=== PATIENT | female | born 1970 | race Caucasian/White ===

== ENCOUNTER → 2017-10-26 | Outpatient (CLI) | payer OTHER | END | disposition home or self-care (01) | LOC: C.LAB 03:31 | DX: Z02.83 Encounter for blood-alcohol and blood-drug test (principal) ==

== ENCOUNTER 2017-12-10 13:05 | Emergency (ER) | payer BC, OTHER ==
[~2017-12-10] VITALS: Ht 170.2 cm; Wt 84.3 kg
[2017-12-10 13:09] VITALS: TEMP 36.8; Ht 170.2 cm; Wt 84.3 kg
[2017-12-10] MEDS ORDERED: MoRPHine SULFATE 4 MG/ML 1 ML CARP\\VIAL IV STA (13:30)
[2017-12-10] MEDS ORDERED: ONDANSETRON INJ 2 MG/ML 2 ML VIAL IV STA ×2 (13:30→16:40)
[2017-12-10] MEDS ORDERED: SODIUM CHLORIDE 0.9% 1000ML 1,000 ML IV STA (13:33)
[2017-12-10 13:55] LABS: BASO % 0.6 %; BASO ABS # 0.04 K/uL (0-0.2); EOS % 2.8 %; HEMATOCRIT 39.7 % (37-47); IG# 0.01 K/uL (0.00-0.02); LYMPH % 32.9 %; LYMPH ABS # 2.39 K/uL (1.2-3.4); MEAN CELL VOLUME 93.2 fL (80-100); MEAN CORPUSCULAR HEMOGLOBIN 32.9 pg (25-34); MEAN CORPUSCULAR HGB CONC 35.3 g/dl (32-36); MEAN PLATELET VOLUME 10.3 fL (7.4-10.4); MONO % 7.6 %; MONO ABS # 0.55 K/uL (0.11-0.59); NEUT ABS # 4.07 K/uL (1.4-6.5); PLATELET COUNT 275 K/uL (130-400); RED CELL DISTRIBUTION WIDTH CV 13.9 % (11.5-14.5); RED CELL DISTRIBUTION WIDTH SD 47.2 fL (36.4-46.3); WHITE BLOOD COUNT 7.26 K/uL (4.8-10.8)
[2017-12-10 14:12] LABS: ALBUMIN 3.8 gm/dl (3.4-5.0); ALT/SGPT 22 U/L (12-78); AST/SGOT 15 U/L (15-37); BLOOD UREA NITROGEN 9 mg/dl (7-18); CALCIUM 8.3 mg/dl (8.5-10.1); CARBON DIOXIDE 22 mmol/L (21-32); CREATININE 0.76 mg/dl (0.60-1.20); GLUCOSE 87 mg/dl (70-99); POTASSIUM 3.4 mmol/L (3.5-5.1); SODIUM 140 mmol/L (136-145)
[2017-12-10 14:17] LABS: PTT PATIENT 24.5 SECONDS (21.0-31.0)
[2017-12-10 14:27] LABS: ALKALINE PHOSPHATASE 65 U/L (45-117); TOTAL PROTEIN 7.3 gm/dl (6.4-8.2)
[2017-12-10] MEDS ORDERED: OPTIRAY 320 IV PRN (14:45)
--- NOTE | 2017-12-10 14:48 | DIAGNOSTIC IMAGING REPORT ---
SINGLE VIEW CHEST CLINICAL HISTORY: Cough. FINDINGS: An AP, portable, upright chest radiograph is compared to study dated 12/21/2011. The examination is degraded by portable technique and patient rotation. The cardiomediastinal silhouette is unremarkable. The lungs and pleural spaces are clear. No pneumothorax is seen. There is chronic posttraumatic deformity of the right clavicle. IMPRESSION: No acute cardiopulmonary abnormality. Electronically signed by: Luke Fan M.D. 12/10/2017 2:47 PM Dictated Date/Time: 12/10/2017 2:46 PM
--- NOTE | 2017-12-10 15:37 | DIAGNOSTIC IMAGING REPORT ---
CHEST CTA for PULMONARY ARTERIES CT DOSE: 495.77 mGy.cm HISTORY: Elevated d-dimer. Cough. TECHNIQUE: Multiaxial CT images of the chest were performed following the intravenous administration of contrast to evaluate the pulmonary arteries. Maximal intensity projection images were also obtained. A dose lowering technique was utilized adhering to the principles of ALARA. COMPARISON STUDY: None. FINDINGS: There is a normal caliber thoracic aorta with no evidence for dissection. There is no evidence for pulmonary embolus. No pleural effusions. No pneumothorax. The liver and spleen are unremarkable. No mediastinal or hilar lymphadenopathy. The central airways are patent. Suggestion of a 2.5 cm right thyroid nodule. However, this is partially obscured by streak artifact. Bilateral breast augmentation. Mild dependent changes seen within the lung bases. No focal lung consolidations to suggest pneumonia. IMPRESSION: 1. No evidence for pulmonary embolus. 2. Possible 2.5 cm right thyroid nodule. Follow-up nonemergent thyroid ultrasound is recommended for further evaluation. Electronically signed by: Heath Waldron M.D. 12/10/2017 3:35 PM Dictated Date/Time: 12/10/2017 3:22 PM
[2017-12-10] MEDS ORDERED: KETOROLAC TROMETHAMINE 30 MG/ML VIAL IV STA (15:51)
[2017-12-10] MEDS ORDERED: CARISOPRODOL 350 MG TAB PO ONE (16:15)
--- NOTE | 2017-12-10 16:38 | DIAGNOSTIC IMAGING REPORT ---
THORACIC SPINE WITHOUT HISTORY: 47 years-old Female recons of CTA acute back pain COMPARISON: CTA chest of same day, lumbar spine CT 09/20/2013 TECHNIQUE: Multiple axial CT images of the thoracic spine were obtained without the use of IV contrast. Coronal and sagittal reformatted images were obtained from the axial data set and were submitted for review. A dose lowering technique was used consistent with the principals of ALARA. FINDINGS: Bones appear mildly demineralized. Mild multilevel spondylitic spurring without significant intervertebral disc space narrowing, acute fracture or subluxation. Minimal facet arthrosis is also seen throughout. 9 mm focal area of sclerosis involves the T5 vertebral body on the left is indeterminate and may reflect a bone island. No acute displaced rib fracture. No significant central canal or foraminal narrowing identified. No acute process of the imaged abdomen or chest. No pneumothorax. Mild subsegmental dependent bibasilar atelectasis. There may be mild bilateral bronchial wall thickening. Decreased attenuation of the inferior right thyroid lobe may correlate with the previously described thyroid nodule. IMPRESSION: Minimal degenerative changes as above without acute fracture or subluxation. The above report was generated using voice recognition software. It may contain grammatical, syntax or spelling errors. Electronically signed by: Yanick Amaral M.D. 12/10/2017 4:37 PM Dictated Date/Time: 12/10/2017 4:32 PM
[2017-12-10] MEDS ORDERED: CARI350T27 PO (16:43)
[2017-12-10] MEDS ORDERED: ONDA4TAB10 SL (16:45)
[2017-12-10 16:46] VITALS: BP 131/82; PULSE 78; O2SAT 98
--- NOTE | 2017-12-10 16:57 | EMERGENCY ROOM VISIT NOTE ---
History Report prepared by Karo: Mark Ramirez Under the Supervision of: Dr. Iris De Leon M.D. First contact with patient: 13:16 Chief Complaint: BACK PAIN Stated Complaint: BACK PAIN,SOB,PAIN History of Present Illness The patient is a 47 year old female who presents to the Emergency Room with complaints of worsening mid-back pain beginning a few days ago. She also complains of shortness of breath and nausea. The patient's pain is improved with sitting straight up. She is a smoker, and denies increased cough. The patient has a history of anxiety (not on any medications) and states that she thought her symptoms could be related to anxiety, but believes it probably is not. She denies chest pain or abdominal pain. She has no diagnosed back problems. The patient notes that her feet and ankles hurt all the time due to her always being on her feet for work. She has not noticed any worsening of pain with eating. Source of History: patient Onset: A few days ago Position: back (mid) Timing: constant Modifying Factors (Relieving): other (sitting up straight) Associated Symptoms: + SOB, + nausea, No chest pain, No abdominal pain Review of Systems See HPI for pertinent positives & negatives. A total of 10 systems reviewed and were otherwise negative. Past Medical & Surgical Medical Problems: (1) ALCOHOL ABUSE-UNSPEC (2) ANXIETY STATE NOS (3) Appendectomy (4) Bilateral breast implants (5) BIPOLAR DISORDER, UNSPECIFIED (6) CALCULUS OF KIDNEY (7) section (8) MITRAL VALVE DISORDER (9) TOBACCO USE DISORDER Surgical Problems: (1) H/O abdominoplasty Family History FH: colon cancer MOTHER Kidney disease Kidney stones Social History Smoking Status: Current Every Day Smoker Alcohol Use: occasionally Marital Status: Housing Status: lives with family Occupation Status: employed Current/Historical Medications Scheduled Ondasetron Odt (Zofran Odt), 4 MG SL Q6H Scheduled PRN Carisoprodol (Soma), 350 MG PO Q8 PRN for spasm Allergies Coded Allergies: Penicillins (Verified Allergy, Mild, 12/10/17) Prochlorperazine (Verified Allergy, Mild, 12/10/17) Codeine (Verified Allergy, Unknown, ITCHY, RASH, ANXIETY, 12/10/17) Physical Exam Vital Signs Date Time Temp Pulse Resp B/P (MAP) Pulse Ox O2 Delivery O2 Flow Rate FiO2 12/10/17 16:46 78 20 131/82 98 Room Air 12/10/17 15:09 83 20 126/89 97 Room Air 12/10/17 13:51 83 12/10/17 13:09 36.8 88 20 112/67 94 Room Air Physical Exam Vital signs reviewed. General: Well-appearing female, in no significant distress. Appears anxious. HEENT: No scleral icterus, PERRLA, neck supple. Atraumatic. Cardiovascular: Regular rate and rhythm, no extra sounds. Pulmonary: Clear to auscultation bilaterally, normal work of breathing. Abdomen: Soft, nontender, nondistended, positive bowel sounds. Musculoskeletal: Atraumatic, no peripheral edema. Tender to palpation over the mid-thoracic paraspinous muscles. Elicited with palpation of the upper abdomen Neurologic: Patient awake alert and oriented x 3 Skin: Warm, dry, no rash Medical Decision & Procedures ER Provider Diagnostic Interpretation: Radiology results as stated below per my review and radiologist interpretation: SINGLE VIEW CHEST FINDINGS: An AP, portable, upright chest radiograph is compared to study dated 12/21/2011. The examination is degraded by portable technique and patient rotation. The cardiomediastinal silhouette is unremarkable. The lungs and pleural spaces are clear. No pneumothorax is seen. There is chronic posttraumatic deformity of the right clavicle. IMPRESSION: No acute cardiopulmonary abnormality. Electronically signed by: Luke Fan M.D. 12/10/2017 2:47 PM CHEST CTA for PULMONARY ARTERIES FINDINGS: There is a normal caliber thoracic aorta with no evidence for dissection. There is no evidence for pulmonary embolus. No pleural effusions. No pneumothorax. The liver and spleen are unremarkable. No mediastinal or hilar lymphadenopathy. The central airways are patent. Suggestion of a 2.5 cm right thyroid nodule. However, this is partially obscured by streak artifact. Bilateral breast augmentation. Mild dependent changes seen within the lung bases. No focal lung consolidations to suggest pneumonia. IMPRESSION: 1. No evidence for pulmonary embolus. 2. Possible 2.5 cm right thyroid nodule. Follow-up nonemergent thyroid ultrasound is recommended for further evaluation. Electronically signed by: Heath Waldron M.D. 12/10/2017 3:35 PM THORACIC SPINE WITHOUT FINDINGS: Bones appear mildly demineralized. Mild multilevel spondylitic spurring without significant intervertebral disc space narrowing, acute fracture or subluxation. Minimal facet arthrosis is also seen throughout. 9 mm focal area of sclerosis involves the T5 vertebral body on the left is indeterminate and may reflect a bone island. No acute displaced rib fracture. No significant central canal or foraminal narrowing identified. No acute process of the imaged abdomen or chest. No pneumothorax. Mild subsegmental dependent bibasilar atelectasis. There may be mild bilateral bronchial wall thickening. Decreased attenuation of the inferior right thyroid lobe may correlate with the previously described thyroid nodule. IMPRESSION: Minimal degenerative changes as above without acute fracture or subluxation. The above report was generated using voice recognition software. It may contain grammatical, syntax or spelling errors. Electronically signed by: Yanick Amaral M.D. 12/10/2017 4:37 PM Laboratory Results 12/10/17 13:43 Red Blood Count 4.26, Mean Corpuscular Volume 93.2, Mean Corpuscular Hemoglobin 32.9, Mean Corpuscular Hemoglobin Concent 35.3, Mean Platelet Volume 10.3, Neutrophils (%) (Auto) 56.0, Lymphocytes (%) (Auto) 32.9, Monocytes (%) (Auto) 7.6, Eosinophils (%) (Auto) 2.8, Basophils (%) (Auto) 0.6, Neutrophils # (Auto) 4.07, Lymphocytes # (Auto) 2.39, Monocytes # (Auto) 0.55, Eosinophils # (Auto) 0.20, Basophils # (Auto) 0.04 12/10/17 13:43 Test 12/10/17 13:43 12/10/17 13:52 White Blood Count 7.26 K/uL (4.8-10.8) Red Blood Count 4.26 M/uL (4.2-5.4) Hemoglobin 14.0 g/dL (12.0-16.0) Hematocrit 39.7 % (37-47) Mean Corpuscular Volume 93.2 fL (80-100) Mean Corpuscular Hemoglobin 32.9 pg (25-34) Mean Corpuscular Hemoglobin Concent 35.3 g/dl (32-36) Platelet Count 275 K/uL (130-400) Mean Platelet Volume 10.3 fL (7.4-10.4) Neutrophils (%) (Auto) 56.0 % Lymphocytes (%) (Auto) 32.9 % Monocytes (%) (Auto) 7.6 % Eosinophils (%) (Auto) 2.8 % Basophils (%) (Auto) 0.6 % Neutrophils # (Auto) 4.07 K/uL (1.4-6.5) Lymphocytes # (Auto) 2.39 K/uL (1.2-3.4) Monocytes # (Auto) 0.55 K/uL (0.11-0.59) Eosinophils # (Auto) 0.20 K/uL (0-0.5) Basophils # (Auto) 0.04 K/uL (0-0.2) RDW Standard Deviation 47.2 fL (36.4-46.3) RDW Coefficient of Variation 13.9 % (11.5-14.5) Immature Granulocyte % (Auto) 0.1 % Immature Granulocyte # (Auto) 0.01 K/uL (0.00-0.02) Prothrombin Time 10.5 SECONDS (9.0-12.0) Prothromb Time International Ratio 1.0 (0.9-1.1) Activated Partial Thromboplast Time 24.5 SECONDS (21.0-31.0) Partial Thromboplastin Ratio 0.9 Anion Gap 7.0 mmol/L (3-11) Est Creatinine Clear Calc Drug Dose 102.1 ml/min Estimated GFR () 108.3 Estimated GFR (Non- 93.4 BUN/Creatinine Ratio 11.3 (10-20) Calcium Level 8.3 mg/dl (8.5-10.1) Total Bilirubin 0.4 mg/dl (0.2-1) Direct Bilirubin 0.1 mg/dl (0-0.2) Aspartate Amino Transf (AST/SGOT) 15 U/L (15-37) Alanine Aminotransferase (ALT/SGPT) 22 U/L (12-78) Alkaline Phosphatase 65 U/L (45-117) Troponin I < 0.015 ng/ml (0-0.045) Total Protein 7.3 gm/dl (6.4-8.2) Albumin 3.8 gm/dl (3.4-5.0) Thyroid Stimulating Hormone (TSH) 0.579 uIu/ml (0.300-4.500) Bedside D-Dimer > 450 ng/mlFEU (0-450) Urine Color DK YELLOW Urine Appearance CLEAR (CLEAR) Urine pH 5.0 (4.5-7.5) Urine Specific [place] 1.027 (1.000-1.030) Urine Protein NEG (NEG) Urine Glucose (UA) NEG (NEG) Urine Ketones TRACE (NEG) Urine Occult Blood 2+ (NEG) Urine Nitrite NEG (NEG) Urine Bilirubin NEG (NEG) Urine Urobilinogen NEG (NEG) Urine Leukocyte Esterase NEG (NEG) Urine WBC (Auto) 1-5 /hpf (0-5) Urine RBC (Auto) 0-4 /hpf (0-4) Urine Hyaline Casts (Auto) 1-5 /lpf (0-5) Urine Epithelial Cells (Auto) >30 /lpf (0-5) Urine Bacteria (Auto) NEG (NEG) Urine Test NEG (NEG) Laboratory results per my review. Medications Administered Medications (Trade) Dose Ordered Sig/Inocencio Route Start Time Stop Time Status Last Admin Dose Admin Morphine Sulfate (MoRPHine SULFATE INJ) 4 mg NOW STAT IV 12/10/17 13:30 12/10/17 13:33 DC 12/10/17 13:54 4 MG Ondansetron HCl (Zofran Inj) 4 mg NOW STAT IV 12/10/17 13:30 12/10/17 13:33 DC 12/10/17 13:54 4 MG Sodium Chloride 1,000 ml @ 200 mls/hr Q5H STAT IV 12/10/17 13:33 12/10/17 17:18 DC 12/10/17 13:54 200 MLS/HR Ketorolac Tromethamine (Toradol Inj) 30 mg NOW STAT IV 12/10/17 15:51 12/10/17 15:52 DC 12/10/17 16:03 30 MG Carisoprodol (Soma Tab) 350 mg NOW ONCE PO 12/10/17 16:15 12/10/17 16:16 DC 12/10/17 16:10 350 MG Ondansetron HCl (Zofran Inj) 4 mg NOW STAT IV 12/10/17 16:40 12/10/17 16:41 DC 12/10/17 16:46 4 MG ECG Per My Interpretation Indication: back/shoulder pain Rate (beats per minute): 83 Rhythm: normal sinus Findings: other (No PVCs. No ST elevations. ) ED Course 1327: Past medical records reviewed. The patient was evaluated in room C2B. A complete history and physical examination was performed. 1330: Ordered Zofran Inj 4 mg IV, Morphine Sulfate 4 mg IV. 1333: Ordered Sodium Chloride 1000 ml @ 200 mls/hr IV. 1551: Ordered Toradol Inj 30 mg IV. 1615: Ordered Soma Tab 350 mg PO. 1640: Ordered Zofran Inj 4 mg IV. 1650: Upon reevaluation, the patient appeared to have improvement of her symptoms. I discussed findings with her. She verbalized agreement of the treatment plan. The patient was discharged home. Medical Decision Differential diagnosis: Etiologies such as musculoskeletal, disc herniation, fracture, aortic disease, metastatic disease, cord compression, discitis, infection, renal colic, gastrointestinal, acute exacerbation of chronic back pain, sciatica, cauda equina, as well as others were entertained. This patient was evaluated and appeared to be in significant discomfort. IV access was obtained and laboratory work was drawn. She was placed on the rn cardiac cath. She was given IV Zofran and morphine for her discomfort. She was hydrated with normal saline solution. Chest x-ray was performed it is negative for acute pathology. Laboratory work reveals an elevated d-dimer. EKG reveals no evidence of acute ischemic change. The patient was informed of these findings. She insists that the thoracic back is the etiology of the pain currently. She was given IV Toradol and CT reconstructions of the thoracic spine were ordered. This revealed some degenerative changes but no acute fracture or finding that would explain the patient's pain. The patient was informed that she likely is suffering from a musculoskeletal or pleuritic type pain. There is no life-threatening finding currently. She was advised to stop smoking, use ibuprofen as needed for pain and given a prescription for muscle relaxers and nausea medication. She was highly encouraged to establish with a PCP and given recommendations based on her preferences. She will follow-up as soon as possible and return to the ER for worsening of symptoms or any medical concerns. Medication Reconcilliation Current Medication List: was personally reviewed by me Blood Pressure Screening Patient's blood pressure: Normal blood pressure Blood pressure disposition: Did not require urgent referral Impression Primary Impression: Acute thoracic back pain Scribe Attestation The scribe's documentation has been prepared under my direction and personally reviewed by me in its entirety. I confirm that the note above accurately reflects all work, treatment, procedures, and medical decision making performed by me. Departure Information Dispostion Home / Self-Care Prescriptions Ondasetron Odt (ZOFRAN ODT) 4 Mg Tab 4 MG SL Q6H for Nausea, #15 TAB Prov: Iris De Leon M.D. 12/10/17 Carisoprodol (SOMA) 350 Mg Tab 350 MG PO Q8 Y for spasm, #20 TAB Prov: Iris De Leon M.D. 12/10/17 Referrals No Doctor, Assigned (PCP) Forms HOME CARE DOCUMENTATION FORM, IMPORTANT VISIT INFORMATION Patient Instructions My [facility] Additional Instructions Diagnosis: Acute thoracic back pain Soma 350 mg 1 tablet every 8 hours as needed for muscular spasm. Do not drive after taking this medication. Ibuprofen 600 mg every 6 hours as needed for pain with food. Please stop smoking. Please refer to the smoking cessation handout. Follow-up with a primary care physician as soon as possible to establish care. If symptoms persist return to the emergency department for worsening of symptoms or any medical concerns.
== END 2017-12-10 17:07 | disposition home or self-care (01) ==
LOC: C.EDB 13:06 → C.EDC 17:07
DX: M54.6 Pain in thoracic spine (principal); F17.210 Nicotine dependence, cigarettes, uncomplicated; F41.9 Anxiety disorder, unspecified; Z98.82 Breast implant status; F31.9 Bipolar disorder, unspecified; Z87.442 Personal history of urinary calculi; I34.8 Other nonrheumatic mitral valve disorders; Z88.0 Allergy status to penicillin; Z88.5 Allergy status to narcotic agent; Z88.8 Allergy status to other drugs, medicaments and biological substances; Z80.0 Family history of malignant neoplasm of digestive organs; Z84.1 Family history of disorders of kidney and ureter